=== PATIENT | male | born 1985 | race African-American/Black ===

== ENCOUNTER 2024-05-27 13:56 | Emergency (ER) | payer MEDICAID ==
[~2024-05-27] VITALS: Ht 182.8 cm; Wt 81.6 kg
[2024-05-27] MEDS ORDERED: NAPROSYN500 MG PO (14:38)
== END 2024-05-27 15:26 | disposition home or self-care (01) ==
LOC: ED 13:56
DX: B07.0 Plantar wart (principal)

== ENCOUNTER 2024-08-05 05:45 | Emergency (ER) | payer MEDICAID ==
[~2024-08-05] VITALS: Ht 182.8 cm; Wt 90.7 kg
[~2024-08-05 05:45] MED LIST: NAPROSYN500 MG PO
[2024-08-05] MEDS ORDERED: NAPROSYN500 MG PO (06:08)
[2024-08-05] MEDS ORDERED: NAPROXEN 250 MG TAB PO ONE (06:10)
== END 2024-08-05 06:11 | disposition home or self-care (01) ==
LOC: ED 05:45
DX: B07.0 Plantar wart (principal); Z79.899 Other long term (current) drug therapy